=== PATIENT | male | born 1955 | race Caucasian/White ===

== ENCOUNTER 2023-01-13 10:49 | Emergency (ER) | payer MEDICARE, SELFPAY ==
[2023-01-13] VITALS (22 sets, daily range): BP systolic 72–108; BP diastolic 53–78; PULSE 92–124; RESP 14–27; TEMP 36.3; O2SAT 93–99
[2023-01-13 11:15] LABS: Basophils Percent Auto 0.4 % (0.2-1.2); Eosinophils Absolute Auto 0.1 K/mm3 (0-0.3); Eosinophils Percent Auto 1.5 % (0-4.4); Hematocrit 50.1 % (42.0-52.0); Hemoglobin 16.4 g/dL (14.0-18.0); Immature Granulocyte Absolute 0.03 K/mm3 (0.00-0.031); Immature Granulocyte Percent A 0.4 % (0-0.5); Lymphocytes Absolute Auto 1.05 K/mm3 (0.9-3.2); Lymphocytes Percent Auto 15.7 % (18.3-44.2); Mean Corpuscular HGB Conc 32.7 g/dl (32-36); Mean Corpuscular Hemoglobin 29.7 pg (26-34); Mean Corpuscular Volume 90.8 fl (80-100); Mean Platelet Volume 8.8 fl (7.4-10.4); Monocytes Absolute Auto 0.7 K/mm3 (0.1-0.6); Monocytes Percent Auto 10.6 % (2.6-8.5); Neutrophils Absolute Auto 4.8 K/mm3 (1.3-6.7); Neutrophils Percent Auto 71.4 % (45.5-73.1); Platelet Count Result 406 k/mm3 (150-375); Red Blood Count 5.52 M/mm3 (4.6-6.20); Red Cell Distribution Width 13.7 % (11.5-14.5); White Blood Count 6.7 K/mm3 (4.5-10.0)
--- NOTE | 2023-01-13 11:17 | ECG_ITS ---
Measurements Intervals [place] Rate: 113 P: 44 NH: 152 QRS: 55 QRSD: 98 T: 17 QT: 312 QTc: 428 Interpretive Statements SINUS TACHYCARDIA DELAYED PRECORDIAL R/S TRANSITION ABNORMAL ECG NO PREVIOUS ECG AVAILABLE FOR COMPARISON Electronically Signed On 01-13-2023 13:46:42 AUTOMOTIVE TECHNOLOGY INSTRUCTOR by Lawrence Tolliver D.O.
[2023-01-13 11:25] LABS: Alanine Aminotransferase 49 U/L (6-50); Albumin Level 4.4 g/dL (3.5-5.1); Alkaline Phosphatase 63 U/L (38-126); Anion Gap 16 mmol/L (8-16); Aspartate Amino Transferase 32 U/L (17-59); Bilirubin,Total 0.9 mg/dL (0.2-1.3); Blood Urea Nitrogen 40 mg/dL (9-20); Calcium 8.8 mg/dL (8.4-10.2); Carbon Dioxide 20 mmol/L (22-30); Chloride 101 mmol/L (98-107); Estimated CRCL calculation 47 ml/min; Estimated Glomerular Filt Rate 38; Glucose 178 mg/dL (65-110); Lipase 121 U/L (23-300); Potassium 3.9 mmol/L (3.4-5.0); Sodium 137 mmol/L (137-145)
[2023-01-13] MEDS: SODIUM CHLORIDE 0.9% IV 1,000 ML 999 ML IV CONT ×2 (11:26→12:43)
--- NOTE | 2023-01-13 12:36 | ED.GENADULT ---
HPI - General Adult General Chief complaint: Nausea/Vomiting/Diarrhea Stated complaint: N/V/D [id number] Time Seen by Provider: 01/13/23 11:35 History of Present Illness HPI narrative: [age] year old male presenting the rest per min for evaluation of persistent nausea vomiting and diarrhea. Patient reports that his symptoms started approximately 4 days ago. Patient did travel down to [place] to see family member but due to the onset of the nausea vomiting diarrhea patient did travel back home. Patient states after arriving back home the symptoms had resolved until approximate the morning he started having persistent nausea vomiting and diarrhea again. Upon arrival to the ED patient denies a persistent nausea vomiting and has no associated abdominal pain. Related Data Home Medications Medication Instructions Recorded Confirmed aspirin 81 mg tablet,delayed 81 mg PO DAILY 03/02/19 11/12/22 release Allergies Allergy/AdvReac Type Severity Reaction Status Date / Time No Known Allergies Allergy Verified 11/12/22 09:38 Review of Systems Review of Systems: All systems reviewed & are unremarkable except as noted in HPI and below PMFSH Past Medical History Medical History Depression Elevated liver enzymes Essential hypertension Fatty liver Hyperlipemia Pain of left great toe Type 2 diabetes mellitus without complications Wellness examination Family History Family History Sibling Hypertension Patient's sister is in good health Social History Social History Social History: Smoking packs per day: 1 Smoking cigarettes per day: 20.0 Years smoked: 14 Smoking pack-years: 14.00 Smoking status: Former smoker Tobacco type: cigarettes Second hand tobacco smoke exposure: No Smoking end date: 02/24/92 Alcohol intake: never Substance use: never Substance use type: does not use Living arrangements: with family Occupation/Education: retired Gender identity (if verbalized by the patient): Male Sexual Orientation (if Verbalized by the Patient): Straight or Heterosexual Exam Narrative: APPEARANCE: Well appearing, no pain, no distress, well-nourished. HEAD: normocephalic, atraumatic. EYES: PERRLA/EOMI, conjunctivae clear. NOSE: Normal no drainage EARS:TMS clear with good light reflex. THROAT: Pharynx clear, no exudate. NECK: Supple. No adenopathy, no masses. RESPIRATORY: Airway patent, respirations nonlabored. Clear to auscultation bilaterally, no rales, rhonchi, wheezing. CARDIOVASCULAR: Regular rate and rhythm without murmurs rubs or gallops. ABDOMINAL: Soft, nontender, nondistended, normal bowel sounds MUSCULOSKELETAL: Moves all extremities. Strength/ROM intact, No edema, No calf tenderness. NEURO: Alert. Cranial nerves II through XII intact. Grossly SKIN: Warm, dry. Normal Color Course Course Emergency Course: 67-year-old male present to the ED for evaluation of persistent nausea vomiting and diarrhea. Patient's blood pressures on arrival were low at 70/54. Patient was treated with IV fluids. On initial evaluation patient denies any complaints. Patient is afebrile with no leukocytosis and a stable hemoglobin of 16.4. Patient does have a mild SELWYN but no other significant electrolyte abnormalities. patient's creatinine was improved after rehydration. Patient did have elevated lactic acid but this is also improved after rehydration. Patient is tolerating p.o. and patient's blood pressures are improved. Patient will be provided Zofran for home was encouraged to follow a clear liquid diet at home. All questions and concerns were addressed and patient was well-appearing at time of discharge. Vital Signs Vital signs: Vital Signs Temperature 97.4 F L 01/13/23 10:57 Pulse Rate 124 H 11
[2023-01-13 12:42] LABS: Appearance Urine Cloudy (Clear); Bacteria Urine None Seen /hpf; Bilirubin Urine Negative (Negative); Blood Urine Negative (Negative); Color Urine Dark Yellow (Yellow); Glucose Urine UA Negative (Negative); Hyaline Casts Urine Present /lpf; Ketones Urine Trace mg/dL (Negative); Leukocyte Esterase Ur Trace LEU/UL (Negative); Need Manual Microscopic Reviewed; Nitrate Urine Negative (Negative); Non Pathogenic Casts >20; Protein Urine 1+ mg/dL (Negative); RBC Urine 0-2 /hpf (0-2); Specific Grav Ur 1.024 (1.001-1.035); Squamous Epithelial Cell Urine Occasional /hpf (Few); WBC Urine 0-5 /hpf; pH Urine 5.5 (5.0-9.0)
[2023-01-13 12:46] LABS: Add Urine Microscopic? YES
[2023-01-13 13:21] LABS: Lactic Acid Reflex 3.6 mmol/L (0.7-2.0)
[2023-01-13 14:20] LABS: Lactic Acid Reflex 1.5 mmol/L (0.7-2.0)
[2023-01-13 14:22] LABS: Anion Gap 7 mmol/L (8-16); Blood Urea Nitrogen 37 mg/dL (9-20); Calcium 8.1 mg/dL (8.4-10.2); Carbon Dioxide 25 mmol/L (22-30); Chloride 107 mmol/L (98-107); Estimated CRCL calculation 59 ml/min; Estimated Glomerular Filt Rate 51; Glucose 94 mg/dL (65-110); Potassium 4.1 mmol/L (3.4-5.0); Sodium 139 mmol/L (137-145)
[2023-01-13 15:50] LABS: Reflex Lactic Acid Yes or No Add Lactic
== END 2023-01-13 14:48 | disposition home or self-care (01) ==
PROVIDERS: Emergency Provider Emergency Medicine; PCP Family Medicine
DX: N17.9 Acute kidney failure, unspecified (principal); R11.2 Nausea with vomiting, unspecified; R19.7 Diarrhea, unspecified; I10 Essential (primary) hypertension; E11.9 Type 2 diabetes mellitus without complications; E78.5 Hyperlipidemia, unspecified; F32.A Depression, unspecified; Z87.891 Personal history of nicotine dependence; Z79.82 Long term (current) use of aspirin; Z79.85 Long-term (current) use of injectable non-insulin antidiabetic drugs; R00.0 Tachycardia, unspecified
CPT/HCPCS: 36415; 80048; 80053; 81001; 83605; 83690; 85025; 93005; 96360; 96361; 99283; J7030

== ENCOUNTER 2024-02-04 05:53 | Day surgery (SDC) | payer MEDICARE, SELFPAY ==
[2023-12-07 11:42] VITALS: BMI 36.7
[2024-01-18 10:34] VITALS: BMI 35.9
[2024-02-04 06:13] VITALS: BP 134/90; PULSE 103; RESP 17; TEMP 36.4; O2SAT 95
[2024-02-04] MEDS: LACTATED RINGERS 1,000 ML 150 ML IV CONT (06:19)
[2024-02-04 06:27] LABS: Glucose Point of Care 147 mg/dl (65-105)
--- NOTE | 2024-02-04 07:09 | WPDANESEPPF ---
Anes - Initial Pre Proc Eval Procedure: Operation Date: 02/04/24 07:30 Proposed Procedures p Diagnostic Colonoscopy - Colton Sinclair MD Date/Time: 02/04/24 07:09 Surgeon: Colton Sinclair MD Pre Op Diagnosis: Personal HX of Colon Polyps Patient Data Age: 68 Gender: M Height: 1.78 m Weight: 115.6 kg Last Vital Signs Temp 36.4 C L 02/04/24 06:13 Pulse 103 H 02/04/24 06:13 Resp 17 02/04/24 06:13 BP 134/90 02/04/24 06:13 Pulse Ox 95 02/04/24 06:13 O2 Del Method Room Air 02/04/24 06:13 Allergies Allergy/AdvReac Type Severity Reaction Status Date / Time No Known Allergies Allergy Verified 02/04/24 06:11 Home Medications ?Medication ?Instructions ?Recorded ?Confirmed ?Type aspirin 81 mg tablet,delayed 81 mg PO DAILY 03/02/19 02/04/24 History release duloxetine 60 mg capsule,delayed 60 mg PO DAILY #90 caps 11/12/22 02/04/24 Rx release sprinkle ezetimibe 10 mg tablet 10 mg PO DAILY #90 tabs 05/20/23 02/04/24 Rx blood sugar diagnostic (OneTouch #100 ea 06/19/23 11/23/23 Rx Verio test strips) semaglutide 2 mg/dose (8 mg/3 mL) 2 mg (0.75 mL) subcut WEEKLY #3 mL 10/21/23 02/04/24 Rx subcutaneous pen injector valsartan 160 mg tablet 160 mg PO DAILY #90 tabs 11/23/23 02/04/24 Rx amlodipine 5 mg tablet 5 mg PO DAILY 01/18/24 02/04/24 History Laboratory Tests 02/04/24 06:24 POC Capillary Glucose 147 H mg/dl (65-105) Patient hx anesthesia problems: none Family hx anesthesia problems: none Results Review: All pre-operative results and documents have been reviewed as part of the pre-operative evaluation. [facility] Past Medical History Medical History Depression Fatty liver Elevated liver enzymes Wellness examination Pain of left great toe Hyperlipemia Essential hypertension Type 2 diabetes mellitus without complications Family History Family History Sibling Hypertension Patient's sister is in good health Social History Social History Social History: Smoking packs per day: 1 Smoking cigarettes per day: 20.0 Years smoked: 14 Smoking pack-years: 14.00 Smoking status: Former smoker Tobacco type: cigarettes Second hand tobacco smoke exposure: No Smoking end date: 02/24/92 Alcohol intake: current Alcohol use details: social Substance use: never Substance use type: does not use Do You Feel Safe in your Home?: Yes Lack of Transportation: No Lack of Food: Never True Current Housing: I Have Housing Concerned About Future Housing: No Difficulty Paying Gas/Electric Bills: No Difficulty Paying for Meds: No Currently Unemployed: No Education: Trade/Vocational Certificate Difficulty w/ Childcare or Family Care: No Living arrangements: with family Occupation/Education: retired Gender identity (if verbalized by the patient): Male Sexual Orientation (if Verbalized by the Patient): Straight or Heterosexual Spiritual care concerns: No Anes - Eval Final PreProcedure Day of Procedure 02/04/24 07:09 Heart: regular rate and rhythm Lungs: clear to auscultation Airway: Mallampati scale class II Neurological: alert and oriented Last oral intake: >/= 8 hours ASA classification: III Emergent: no Anesthetic plan: proceed Anesthesia type and monitoring: general GIVS and standard monitoring Results Review: All pre-operative results and documents have been reviewed as part of the pre-operative evaluation. Informed Consent: The patient's anesthetic plan and its attendant risks and benefits were discussed with the patient/family/POA. Questions were solicited and answers provided to the satisfaction of the patient/family/POA.
--- NOTE | 2024-02-04 07:17 | PM.HPGS ---
History of Present Illness History of Present Illness Consent: Risks, benefits, and alternatives have been discussed and questions answered. Patient agrees to proceed with procedure. Chief complaint: Personal HX of Colon Polyps Narrative: Yousif Chan Jr. is a 68 year old male screening colonoscopy. Patient was found to have benign colon polyp at time of previous colonoscopy in 2019. Family history is noncontributory. Patient reports his current weight appetite and bowel movements are normal. Review of Systems Review of Systems: All systems reviewed & are unremarkable except as noted in HPI and below PMFSH Past Medical History Medical History Depression Fatty liver Elevated liver enzymes Wellness examination Pain of left great toe Hyperlipemia Essential hypertension Type 2 diabetes mellitus without complications Family History Family History Sibling Hypertension Patient's sister is in good health Social History Social History Social History: Smoking packs per day: 1 Smoking cigarettes per day: 20.0 Years smoked: 14 Smoking pack-years: 14.00 Smoking status: Former smoker Tobacco type: cigarettes Second hand tobacco smoke exposure: No Smoking end date: 02/24/92 Alcohol intake: current Alcohol use details: social Substance use: never Substance use type: does not use Do You Feel Safe in your Home?: Yes Lack of Transportation: No Lack of Food: Never True Current Housing: I Have Housing Concerned About Future Housing: No Difficulty Paying Gas/Electric Bills: No Difficulty Paying for Meds: No Currently Unemployed: No Education: Trade/Vocational Certificate Difficulty w/ Childcare or Family Care: No Living arrangements: with family Occupation/Education: retired Gender identity (if verbalized by the patient): Male Sexual Orientation (if Verbalized by the Patient): Straight or Heterosexual Spiritual care concerns: No Meds Home Medications and Allergies Home Medications ?Medication ?Instructions ?Recorded ?Confirmed ?Type aspirin 81 mg tablet,delayed 81 mg PO DAILY 03/02/19 02/04/24 History release duloxetine 60 mg capsule,delayed 60 mg PO DAILY #90 caps 11/12/22 02/04/24 Rx release sprinkle ezetimibe 10 mg tablet 10 mg PO DAILY #90 tabs 05/20/23 02/04/24 Rx blood sugar diagnostic (OneTouch #100 ea 06/19/23 11/23/23 Rx Verio test strips) semaglutide 2 mg/dose (8 mg/3 mL) 2 mg (0.75 mL) subcut WEEKLY #3 mL 10/21/23 02/04/24 Rx subcutaneous pen injector valsartan 160 mg tablet 160 mg PO DAILY #90 tabs 11/23/23 02/04/24 Rx amlodipine 5 mg tablet 5 mg PO DAILY 01/18/24 02/04/24 History Allergies Allergy/AdvReac Type Severity Reaction Status Date / Time No Known Allergies Allergy Verified 02/04/24 06:11 Vital Signs Vital Signs - 24 hr 02/04/24 06:13 Temperature 97.5 F L Pulse Rate 103 H Respiratory Rate 17 Blood Pressure 134/90 Pulse Oximetry 95 Oxygen Delivery Room Air Exam Narrative: Physical exam reveals patient to be alert. Vital signs stable. HEENT exam is unremarkable. Patient is anicteric. Lungs are clear to auscultation and percussion. Heart is without murmur or extra sounds. Abdomen bowel sounds are present soft nontender with no organomegaly. Digital and External rectal exam normal. Assessment and Plan Assessment and plan (1) History of colon polyps: Code(s): Z86.0100 - Personal history of colon polyps, unspecified Status: Acute Assessment and Plan: Patient has a history of colon polyps. Plan for colonoscopy now and consider this a 5 year intervals.
[2024-02-04 07:50] VITALS: BP 97/75; PULSE 91; RESP 14; O2SAT 96
[2024-02-04 08:00] VITALS: BP 106/84; PULSE 85; RESP 13; O2SAT 97
[2024-02-04 08:10] VITALS: BP 114/84; PULSE 96; RESP 15; O2SAT 96
--- NOTE | 2024-02-04 08:26 | WPDANESPN ---
Anes - Prog Note Post-Op Date/Time: 02/04/24 08:26 Cardiovascular status: normal Respiratory status: normal Airway patency: baseline Mental status: baseline Post-Op hydration status: normal Vital Signs: Last Vital Signs Temp 36.4 C L 02/04/24 06:13 Pulse 96 02/04/24 08:10 Resp 15 02/04/24 08:10 BP 114/84 02/04/24 08:10 Pulse Ox 96 02/04/24 08:10 O2 Del Method Room Air 02/04/24 08:10 Pain Score (VAS): 0/10 I/O: Intake & Output 02/03/24 02/04/24 02/04/24 23:59 07:59 15:59 Intake Total 800 200 Balance 800 200 02/04/24 06:24 POC Capillary Glucose 147 H Patient Feedback: Patient satisfied with anesthetic care.
== END 2024-02-04 08:31 | disposition home or self-care (01) ==
PROVIDERS: PCP Family Medicine; Visit Provider Internal Medicine Gastroenterology
PROC: 0DJD8ZZ Inspection of Lower Intestinal Tract, Via Natural or Artificial Opening Endoscopic (ICD-10-PCS; CPT 45378; principal; 2024-02-04 07:30)
DX: Z86.0100 Personal history of colon polyps, unspecified (principal); D12.3 Benign neoplasm of transverse colon; D12.8 Benign neoplasm of rectum
CPT/HCPCS: 45385

== ENCOUNTER 2024-02-04 09:01 | Outpatient (NON) | payer MEDICARE, SELFPAY | END 2024-02-04 09:02 | disposition home or self-care (01) | PROVIDERS: PCP Family Medicine; Visit Provider Internal Medicine Gastroenterology | DX: D12.3 Benign neoplasm of transverse colon (principal); D12.8 Benign neoplasm of rectum; Z86.0100 Personal history of colon polyps, unspecified | CPT/HCPCS: 88305 ==

== ENCOUNTER 2024-11-21 07:58 | Outpatient (CLI) | payer MEDICARE, SELFPAY ==
--- OUTSIDE RECORDS SUMMARY | 2004-01-06 04:15 | XMS_ITS | Continuity of Care Document ---
Author Organization [facility] Address [address] [place] [address] Phone Care Team Providers Care Auxiliary Equipment Operator Name Role Phone Craft OD, Colton Unavailable Unavailable Advance Directives Directive Yes / No Effective Date File Name No Information Encounters Encounter Description Practice Location Reason(s) For Visit Diagnoses Date Provider Providers Copied on Encounter [facility], [address], [place], [place], [id number], [place] tel:[phone] [facility] No Information 3-200 4 Craft OD Colton. [address] , [address], [place], [address], [place]. tel:[phone] Family History Family Member Type Diagnosis Age At Onset No Information Payers Payer name Insurance type Covered libertarian ID Authoriza tion(s) No Information Social History Type Description Quantity Date Captured Comments Sex Male Smoking Status No Information Chief Complaint And Reason For Visit No Information Reason For Referral Reason For Referral No Information History Of Present Illness Encounter Date Complaint History Of Prese nt Illness No Information Functional Status Date Functional Assessmen t No Information Instructions Date Instruction Additional Infor mation No Information Assessments Type Assessment Date No Information Patient Care Teams Name Effective Dates (start - stop) Status Members No Information
--- NOTE | ~2024-11-21 | XR_ITS ---
EXAMINATION: XR chest 2V, 11/21/2024 9:09 CDT HISTORY: EXERTIONL SHORTNESS OF BRETH,DYSPENA ON EXERTION COMPARISON: No comparisons available. Technique: 2 views obtained. Findings: The lungs are clear, no effusion. No pneumothorax. Heart is normal size. Mediastinal and hilar contours are within normal limits. Bony thorax no acute abnormality. Impression: No acute cardiopulmonary abnormality. Reviewed, dictated and finalized at location P. Impression: No acute cardiopulmonary abnormality.
--- OUTSIDE RECORDS SUMMARY | 2024-11-21 08:12 | XMS_ITS | Encounter Summary ---
Author Organization [facility] Address [address] [place] [address] Care Team Providers Care Laboratory Operations Coordinator Name Role Phone Slade Ortega MD Primary Care Provider Encounter Details Date Type Department Care Team (Late st Contact Info) Description 07/21/2024 Orders Only [facility] [place] [facility] [place] [address] [place] [id number] Scanning, Provider Social History Tobacco Use Types Packs/Day Years Used Date Smoking Tobacco: Never Assessed Sex and Gender Information Value Date Recorded Sex Assigned at Not on file 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 Gender Identity Male 08/14/2024 9:53 PM CDT Sexual Orientation Straight 08/14/2024 9: 53 PM CDT documented as of this encounter Plan of Treatment Not on file documented as of this encounter Procedures Procedure Name Priority Date/Time Associated Diagnosis Comments SCAN - LABS 07/21/2024 documented in this encounter Results * SCAN - LABS (07/21/2024) us Provider Scanning Final Result documented in this encounter Visit Diagnoses Not on filedocumented in this encounter Care Teams Laboratory Operations Coordinator Relationship Specialty Start Date End Date Slade Ortega MD [address] [place] [address] PCP - General Family Medicine 08/01/24 documented as of this encounter
--- OUTSIDE RECORDS SUMMARY | 2024-11-21 08:12 | XMS_ITS | Clinical Summary ---
Author Organization [facility] [address] [place] [address] [address] [place] [address] Care Team Providers Care Switch Engineer Name Role Phone Slade Ortega MD Primary Care Provider Allergies No known active allergies Medications DULoxetine DR (CYMBALTA) 60 mg capsule Take 1 capsule (60 mg total) by mouth daily 08/30/2024 Active aspirin 81 MG oral suspension Acti ve Ozempic 2 mg/dose (8 mg/3 mL) pen injector injection Active ezetimibe-atorv astatin 10-10 mg tablet Active valsartan (DIOVAN) 160 mg tablet Take 0.5 tablets (80 mg total) by mouth daily Active Active Problems Problem Noted Date Diagnosed Date Fatigue 09/08/2024 Hypersomnolence 09/08/2024 Class 2 severe obesity due t o excess calories with serious comorbidity and body mass index (BMI) of 37.0 to 37.9 in adult 09/08/2024 Hypertension associated with diabetes 09/08/2024 Orthostasis 09/08/2024 TOLLIVER (dyspnea on exertion) 09/08/2024 Other forms of dyspnea 09/08/2024 Encounters Date Type Department Care Team Description 11/08/2024 8:30 AM CDT Office Visit [facility] [address] [place] [address] Clementina Reno NP Exertional shortness of breath (Primary Dx); Fatigue due to excessive exertion, subsequent encounter; MANAS (obstructive sleep apnea); Hypotension, unspecified hypotension type; Abnormal result of other cardiovascular function study; Abnormal findings on diagnostic imaging of heart and coronary circulation 11/08/2024 Telephone [facility] Cardiology [address] [place] [address] [place] [phone] Clementina Reno NP 10/31/2024 Results Follow-Up [facility] Cardiology [address] [place] [address] [place] [phone] Paras Del [place] MD PSG 10/26/2024 7:15 PM CDT - 10/26/2024 11:59 PM CDT Hospital Encounter [facility] [address] [place] [address] Hypersomnolence; Fatigue, unspecified type; Class 2 severe obesity due to excess calories with serious comorbidity and body mass index (BMI) of 37.0 to 37.9 in adult (HCC); Hypertension associated with diabetes (HCC) Discharge Disposition: Discharge to home or self care 10/18/2024 Telephone [facility] Cardiology [address] [place] [address] [place] [phone] Paras Del [place] MD sleep study order 09/16/2024 Results Follow-Up [facility] Cardiology at [address] [place] [phone] Paras Del [place] MD Transthoracic Echo (TTE) Complete W Doppler/CF 09/15/2024 11:15 AM CDT Ancillary Procedure [facility]iology [address] [place] [address] [address] [place] [phone] TOLLIVER (dyspnea on exertion); Hypertension associated with diabetes (HCC) 09/12/2024 Results Follow-Up [facility]iology at [address] [place] [phone] Paras Del [place] MD T4, free, Total testosterone, TSH 09/09/2024 Orders Only [facility] [address] [place] [address] [place] [phone] Paras Del [place] MD 09/08/2024 9:15 AM CDT Office Visit [facility] [address] [place] [address] Paras Del [place] MD TOLLIVER (dyspnea on exertion) (Primary Dx); Other forms of dyspnea; Orthostasis; Hypertension associated with diabetes (HCC); Class 2 severe obesity due to excess calories with serious comorbidity and body mass index (BMI) of 37.0 to 37.9 in adult (HCC); Hypersomnolence; Fatigue, unspecified type; Lipid screening from Last 3 Months Surgical History Surgery Date Site/Laterality Comments TONSILLECTOMY Medical History Medical History Date Comments Hypertension Diabetes mellitus Family History Medical History Relation Name Comments Enlarged heart Brother 1 Gonzalo Hypertension Brother 2 Curtis Emphysema Father Lung cancer Father Spina bifida Sister 1 Angélica Heart disease Sister 2 Annette No Known Problems Sister 3 Polly Relation Name Status Comments Brother 1 Gonzalo Brother 2 Curtis Alive Father Mother Sister 1 Angélica Sister 2 Annette Alive Sister 3 Polly Alive Social History Tobacco Use Types Packs/Day Years Used Date Smoking Tobacco: Former Cigarettes Passive Smoke Exposure: Past Smokeless Tobacco: Never Tobacco Cessation:Counseling Given: Not Answered Sex and Gender Information Value Date Recorded Sex Assigned at Not on file 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 Gender Identity Male 08/14/2024 9:53 PM CDT Sexual Orientation Straight 08/14/2024 9: 53 PM CDT Obstetrics History Last Filed Vital Signs Vital Sign Reading Time Taken Comments Blood Pressure 110/72 11/08/2024 8:19 AM CDT Pulse 99 11/08/2024 8:19 AM CDT Temperature - - Respiratory Rate - - Oxygen Saturation 96% 11/08/2024 8:19 AM CDT Inhaled Oxygen Concentration - - Weight 117.5 kg (259 lb 1.6 oz) 11/08/2024 8:19 AM CDT Height 177.8 cm (5' 10) 11/08/2024 8:19 AM CDT Body Mass Index 37.18 11/08/2024 8:19 AM CDT Plan of Treatment Health Maintenance Due Date Last Done Comments Albumin Creatinine Ratio, Urine 1955 Colon Cancer Screening-Colonoscopy 1955 Depression Screening 1955 Fall Risk Assessment 1955 Hemoglobin A1C 1955 Hepatitis C Screening 1955 Prostate Cancer Screening-PSA 1955 eGFR 1955 Dilated Eye Exam 1955 Foot Exam 1956 Hepatitis B Screening 1974 Pneumococcal vaccine 65+ (1 of 2 - PCV) 11/17/1975 Abdominal Aortic Aneurysm (A AA) Screen 2021 Well Visit 65+ 2021 Covid-19 Vaccine (5 - 2024-2 6 season) 2024 01/23/2023, 01/10/2021, 05/23/2020, Additional history exists Influenza Vaccine (#1) 2024 01/23/2023 Lipid Panel 09/08/2025 09/08/2024 DTaP/Tdap/Td Vaccine (2 - Td or Tdap) 08/21/2030 08/21/2020 Zoster Vaccine Completed 11/25/2020, 08/21/2020 Procedures Procedure Name Priority Date/Time Associated Diagnosis Comments PSG (SIMPLE) Routine 10/27/2024 12:15 PM CDT Hypersomnolence Fatigue, unspecified type Class 2 severe obesity due to excess calories with serious comorbidity and body mass index (BMI) of 37.0 to 37.9 in adult (HCC) Hypertension associated with diabetes (HCC) TRANSTHORACIC ECHO (TTE) COMPLETE W DOPPLER/CF WO CONTRAST Routine 09/15/2024 11:56 AM CDT TOLLIVER (dyspnea on exertion) Hypertension associated with diabetes (HCC) TSH Routine 09/09/2024 1:05 PM CDT TOTAL TESTOSTERONE Routine 09/09/2024 1: 05 PM CDT T4, FREE Routine 09/09/2024 1:05 PM CDT ELECTROCARDIOGRAM REPORT Routine 025 2:19 PM CDT Other forms of dyspnea TOLLIVER (dyspnea on exertion) Orthostasis Hypertension associated with diabetes (HCC) POCT LIPID PANEL Routine 09/08/2024 9:29 AM CDT Lipid screening from Last 3 Months Results * PSG (10/27/2024 12:15 PM CDT) Impressions Ney Boykin MD - 10/27/2024 12:15 PM CDT Indication for study: Mr. Chan is a 68 year old gentleman chief complaints of snoring, unrefreshing sleep and daytime fatigue and tiredness. The patient's Columbia Sleepiness scale score is 4 Vital statistics: Age: 68 years Height: 70 in Weight: 263 lb BMI: 38.1 Procedure: A polysomnographic sleep study was performed. Variables monitored and recorded during the study; EEG, EOG, EKG, Chin EMG, snoring, lower extremity EMG, nasal and oral airflow, chest and abdominal wall movements, oxygen saturation and audio/video monitoring . Unless otherwise noted, polysomnogram was recorded and scored in accordance with recommended parameters as outlined in the AASM Manual for the Scoring of Sleep and Associated Events, Version 2.6. Hypopneas were scored in accordance with acceptable parameters as outlined in Chapter VIII, Part 1: Rules for Adults, Category D, Section 1B. Description of polysomnography findings: Patient had 409.3 minutes of monitored time. 256 minutes of total sleep was present. Sleep efficiency was 62.5%. Latency from lights out to stage N1 was 30.7 minute, latency to stage N2 from sleep onset was 5.5 minute, latency to stage N3 from sleep onset was 53.5 minute,and latency to stage REM from sleep onset was 361 minutes. Sleep stage recording stage wake of 154 minute. Stage non-REM comprised 251 minute (98% total sleep time). This included stage N1 was 68 minute (26.6% total sleep time), stage N2 179.5 minute (70.1% total sleep time), stage N3 of 3.5 minute (1.4% total sleep time). Stage REM comprised 5 minute (2% total sleep time). Arousal analysis revealed total 133 arousals. The arousal index was 31.2. There were 21 spontaneous arousals. The spontaneous arousal index was 4.9. The apnea-hypopnea index was 28.1. The AHI was 8.6 in supine position, and 28.7 in the nonsupine position. REM sleep revealed an AHI of 48.0. There were 3 obstructive apneas and 117 hypopneas recorded. Baseline oxygen saturation was 91.1%. Lowest oxygen saturation was 81%. 19.2 minutes oxygen saturation less than 88% documented. Snoring was mild to moderate. Limb movement recording revealed 492 periodic limb movements. Periodic limb movement index was 115.3. Periodic limb movement arousal index was 9.4. Average heart rate during wake was 75.2, and during sleep was 73.0. Impression: 1. Reduced sleep efficiency 2. Moderate obstructive sleep disorder breathing. This is severe in the REM sleep 3. 19.2 minutes oxygen saturation less than 88% documented. 4. Severe periodic limb movements sleep were noted. 5. 3. Consider Positive Airway Pressure (PAP) devices such as continuous PAP (CPAP), auto-adjusting PAP (APAP), and bi-level PAP (Bi-PAP). 4. CPAP titration to determine optimal pressure required to alleviate sleep disordered breathing 5. Sleep hygiene should be reviewed to assess factors that may improve sleep quality. 6. Weight management and regular exercise should be initiated or continued 7. Avoid alcohol sedatives and other DIE STORAGE CLERK depression that may worsen sleep apnea and disrupt normal sleep architecture 8. Patients with sleep apnea may have significant daytime hypersomnolence. If that is the case, driving or handling heavy machinery should be avoided until the apnea and excessive sleepiness have resolved. Narrative Ney Boykin MD - 10/27/2024 12:15 PM CDT In lab study is ready for review us Paras Del [place] MD SLE[facility]ENTER ORDERABLES F inal Result * TRANSTHORACIC ECHO (TTE) COMPLETE W DOPPLER/CF WO CONTRAST (09/15/2024 11:56 AM CDT) Estimated EF 70 % CONS SCIMAGE EF Mod BP 70 % CONS SCIMAGE Anatomical Region Laterality Modality Ultrasound 09/15/2024 11:0 4 AM CDT Narrative 09/15/2024 4:25 PM CDT [facility] [address], [place] [address] [address] [facility] [address], [place] [address] P:[phone] P:[phone] Echocardiographic Report Patient Name: DOMINGO CHAN F : 1955 Study Date: 09/15/2024 11:04:10 AM Gender: M Bag Liner: Karlee Mccloud)([place]), [facility] Location: [facility] Provider: PARAS DEL [place]LE Height(Cm): 178 BSA: 2.43 Weight(Kg): 119.3 Heart Rate: 91 BP: 118 / 84 Quality: Good Order Provider: PARAS DEL [place] PROCEDURES: Echocardiographic Report: Transthoracic echocardiogram with complete 2D, M-Mode, and color Doppler examination. With Strain Analysis. 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 MEASUREMENTS: 2D/MM Value Range Doppler Value Range EF Mod BP 70 % [ 52 - 72 ] QUAN Vmax 2.26 cm2 [ 2.00 - 4.00 ] Estimated EF 70 % AV Mean PG 6 mmHg LV GLS -16.36 % AV Peak Koby 1.72 m/s [ 1.00 - 1.70 ] LVIDd 2D 4.43 cm [ 4.20 - 5.80 ] AV Peak PG 12 mmHg LVIDs 2D 2.83 cm [ 2.50 - 4.00 ] AV VTI 28.75 cm LVPWd 2D 1.22 cm [ 0.60 - 1.00 ] LVOT Diam 2.03 cm [ 1.70 - 2.10 ] IVSd 2D 1.18 cm [ 0.60 - 1.00 ] LVOT Peak Koby 1.20 m/s [ 0.70 - 1.10 ] AoR Diam 2D 4.62 cm [ 3.10 - 3.70 ] LVOT VTI 20.92 cm LA Volume 43.55 ml [ 18.00 - 58.00 ] MV E Peak Koby 0.88 m/s [ 0.60 - 1.30 ] LA Volume Index 18 cc/m2 [ 16 - 28 ] MV A Peak Koby 1.03 m/s [ 1.00 - 1.20 ] RA Volume 28.05 ml MV Decel Time 212 msec [ 104 - 258 ] PV Peak Koby 1.02 m/s [ 0.40 - 0.80 ] RV S` 17.60 mmHg Lateral E` 0.08 m/s [ 0.10 - 0.15 ] Septal E` 0.08 m/s [ 0.08 - 0.15 ] E` 0.08 m/s E/E` 11 Tapse 2.41 cm [ 1.71 - 5.00 ] 2D/MM Value Range Doppler Value Range - FINDINGS: Interpretation Site: Exam was interpreted at [facility]. Left Ventricle: Normal left ventricular size. Normal global left ventricular systolic function. Impaired diastolic relaxation Grade I. Ejection fraction is measured at 70 %. Ejection Fraction is visually estimated to be 70 %. Global Longitudinal Strain is -16 %. Right Ventricle: Normal right ventricular size. Left Atrium: The left atrium is normal in size. Right Atrium: The right atrium is normal in size. Atrial Septum: Normal atrial septum. Mitral Valve: Normal appearance of the mitral valve. Aortic Valve: Aortic cusps appear mildly sclerotic. Trace to mild aortic valve regurgitation. Tricuspid Valve: Normal appearance of the tricuspid valve. Pulmonic Valve: Normal appearance of the pulmonic valve. Pericardium: Normal pericardium with no significant pericardial effusion. Aorta: Normal aortic root. IVC: Normal size and normal respiratory collapse consistent with normal right atrial pressure (<5 mmHg). Pulmonary Artery: Normal pulmonary artery size. CONCLUSIONS: Normal left ventricular size. Normal global left ventricular systolic function. Impaired diastolic relaxation Grade I. Ejection fraction is measured at 70 %. Ejection Fraction is visually estimated to be 70 %. Global Longitudinal Strain is -16 %. Aortic cusps appear mildly sclerotic. Trace to mild aortic valve regurgitation. Electronically Signed By: Tera Harman MD, [facility] 09/15/2024 4:24:25 PM CDT Procedure Note Tera Harman MD - 09/15/2024 [facility] [address], [place] [address] [address] [facility] [id number], [place] [address] P:[phone] P:[phone] Echocardiographic Report Patient Name: DOMINGO CHAN F : 1955 Study Date: 09/15/2024 11:04:10 AM Gender: M Bag Liner: Karlee Falk ([place])([place]), [facility] Location: [facility] Provider: PARAS DEL VALLE Height(Cm): 178 BSA: 2.43 Weight(Kg): 119.3 Heart Rate: 91 BP: 118 / 84 Quality: Good Order Provider: PARAS DEL [place] PROCEDURES: Echocardiographic Report: Transthoracic echocardiogram with complete 2D, M-Mode, and color Dopplerexamination. With Strain Analysis. 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 MEASUREMENTS: 2D/MM Value Range Doppler ValueRange EF Mod BP 70 % [ 52 - 72 ] QUAN Vmax 2.26cm2 [ 2.00 - 4.00 ] Estimated EF 70 % AV Mean PG 6mmHg LV GLS -16.36 % AV Peak Koby 1.72m/s [ 1.00 - 1.70 ] LVIDd 2D 4.43 cm [ 4.20 - 5.80 ] AV Peak PG 12mmHg LVIDs 2D 2.83 cm [ 2.50 - 4.00 ] AV VTI 28.75cm LVPWd 2D 1.22 cm [ 0.60 - 1.00 ] LVOT Diam 2.03cm [ 1.70 - 2.10 ] IVSd 2D 1.18 cm [ 0.60 - 1.00 ] LVOT Peak Koby 1.20m/s [ 0.70 - 1.10 ] AoR Diam 2D 4.62 cm [ 3.10 - 3.70 ] LVOT VTI 20.92cm LA Volume 43.55 ml [ 18.00 - 58.00 ] MV E Peak Koby 0.88m/s [ 0.60 - 1.30 ] LA Volume Index 18 cc/m2 [ 16 - 28 ] MV A Peak Koby 1.03m/s [ 1.00 - 1.20 ] RA Volume 28.05 ml MV Decel Time 212msec [ 104 - 258 ] PV Peak Koby 1.02 m/s [ 0.40 - 0.80 ] RV S` 17.60 mmHg Lateral E` 0.08 m/s [ 0.10 - 0.15 ] Septal E` 0.08 m/s [ 0.08 - 0.15 ] E` 0.08 m/s E/E` 11 Tapse 2.41 cm [ 1.71 - 5.00 ] 2D/MM Value Range Doppler ValueRange - FINDINGS: Interpretation Site: Exam was interpreted at [facility]. Left Ventricle: Normal left ventricular size. Normal global left ventricular systolicfunction. Impaired diastolic relaxation Grade I. Ejection fraction is measured at 70 %.Ejection Fraction is visually estimated to be 70 %. Global Longitudinal Strain is -16 %. Right Ventricle: Normal right ventricular size. Left Atrium: The left atrium is normal in size. Right Atrium: The right atrium is normal in size. Atrial Septum: Normal atrial septum. Mitral Valve: Normal appearance of the mitral valve. Aortic Valve: Aortic cusps appear mildly sclerotic. Trace to mild aortic valveregurgitation. Tricuspid Valve: Normal appearance of the tricuspid valve. Pulmonic Valve: Normal appearance of the pulmonic valve. Pericardium: Normal pericardium with no significant pericardial effusion. Aorta: Normal aortic root. IVC: Normal size and normal respiratory collapse consistent with normal rightatrial pressure (<5 mmHg). Pulmonary Artery: Normal pulmonary artery size. CONCLUSIONS: Normal left ventricular size. Normal global left ventricular systolicfunction. Impaired diastolic relaxation Grade I. Ejection fraction is measured at 70 %.Ejection Fraction is visually estimated to be 70 %. Global Longitudinal Strain is -16 %. Aortic cusps appear mildly sclerotic. Trace to mild aortic valveregurgitation. Electronically Signed By: Tera Harman MD, [facility] 09/15/2024 4:24:25 PM CDT Result [facility] Paras Del [place] MD CV ECHO PROCEDURES Final Result * TSH (09/09/2024 1:05 PM CDT) Pathologist [facility] TSH 2.01 0.40 - 4.50 mIU/L [facility] 09/09/2024 1:05 PM CDT 09/09/2024 1:06 PM CDT Paras Del [place] MD LAB BLOOD ORDERABLES Anamika l Result Performing Organization Address [facility] de Phone Number QUEST [facility] [address] [place] [address] * T4, free (09/09/2024 1:05 PM CDT) Pathologist [facility] Free T4 1.3 0.8 - 1.8 ng/dL [facility] 09/09/2024 1:05 PM CDT 09/09/2024 1:06 PM CDT Paras Del [place] MD LAB BLOOD ORDERABLES Anamika l Result Performing Organization Address [facility] de Phone Number [facility] [address] [place] [address] * Total testosterone (09/09/2024 1:05 PM CDT) Pathologist [facility] Testosterone 407 250 - 827 ng/dL [facility] 09/09/2024 1:05 PM CDT 09/09/2024 1:06 PM CDT Paras Del [place] MD LAB BLOOD ORDERABLES Anamika l Result Performing Organization Address [facility]/ZIP Co de Phone Number [facility] [address] [address] [phone] * Electrocardiogram Report (09/08/2024 2:19 PM CDT) Paras [place] MD ECG ORDERABLES Final Res ult * (ABNORMAL) POCT lipid panel (09/08/2024 9:29 AM CDT) Cholesterol, POC 166 <200 MG/DL HDL, POC 40 >=40 mg/dL Triglycerides, POC 167(A) <=149 mg/dL LDL Cholesterol POC 93 <=129 mg/dL Chol/HDL Ratio, POC 2.4 NONE Non-HDL Cholesterol, POC 17 NONE mg/dL Cholesterol Total, POC 166 30 - 199 mg/dL Capillary blood 09/08/2024 9 :29 AM CDT Paras Del [place] MD POINT OF CARE TEST ORDERA BLES Final Result from Last 3 Months Insurance [facility] [place] [phone] Care Teams Switch Engineer Relationship Specialty Start Date End Date Slade Ortega MD [address] [facility] [address] [place] [address] PCP - General Family Medicine 08/01/24
--- NOTE | 2024-11-21 13:32 | WPDPFTINT ---
PFT Procedure Performed PFT Procedure Performed Plethysmography (Lung Vol) Diffusing Cap (DLCO) Flow Vol Loop Spirometry w/o Bronchodil PFT Interpretation This is a pulmonary function test with spirometry, plethysmography and diffusing capacity. The test was performed and results interpreted in accordance with the 2019 and 2005 ATS/ERS Task Force guidelines respectively using the Global Lung Function Initiative-2012 reference equations. Patient demonstrated good effort and cooperation. Reproducibility criteria were met. The quality of the spirometry maneuver was Grade A. Findings: Spirometry: There is decreased maximal expiratory airflow at all lung volumes with concave expiratory flow tracing. The contour the inspiratory flow tracing is normal. The FVC is 4.43 L, 102% predicted. The FEV1 is 2.47 L, 75% predicted. The FEV1: FVC ratio is 56%. Plethysmography: The total lung capacity is 7.23 L, 103% predicted. The functional residual capacity is 3.49 L, 94% predicted. The residual volume is 2.48 L, 103% predicted. Diffusing capacity: The diffusing capacity unadjusted for hemoglobin and carboxyhemoglobin is 29.3, 110% predicted. The diffusing capacity adjusted for alveolar volume is 4.68, 117% predicted. Impression: There is a mild obstructive abnormality with a normal FEV1. The The lung volumes are normal. The diffusing capacity is normal. There are no prior studies for comparison
== END 2024-11-21 07:59 | disposition home or self-care (01) ==
PROVIDERS: PCP Family Medicine; Visit Provider Nurse Practitioner Adult Health
DX: R94.2 Abnormal results of pulmonary function studies (principal); R06.02 Shortness of breath
CPT/HCPCS: 71046; 94375; 94726; 94729